=== PATIENT | female | born 1980 | race Caucasian/White ===

== ENCOUNTER → 2017-12-05 | Outpatient (CLI) | payer BC ==
--- NOTE | 2017-12-05 11:14 | DIAGNOSTIC IMAGING REPORT ---
CT OF THE SINUSES WITHOUT CONTRAST FUSION PROTOCOL CLINICAL HISTORY: Acute maxillary sinusitis. COMPARISON STUDY: No previous studies for comparison. TECHNIQUE: Axial images of the sinuses were obtained without intravenous contrast according to the Fusion protocol. Coronal reformats were viewed. FINDINGS: Visualized portions of the intracranial contents are unremarkable on this unenhanced exam. The mastoid air cells are clear. There is no fluid within the middle ears. No bony destruction is present. Orbits are unremarkable. The major drainage pathways are patent. There is slight leftward deviation the nasal septum with spur formation. The sinuses are essentially clear. There is minimal sinus mucosal thickening. No mass is present within the nasal cavity or the sinuses. IMPRESSION: Essentially clear sinuses. Minimal sinus mucosal thickening. No evidence for acute sinusitis. Patent major drainage pathways. Electronically signed by: Nikolai Loza M.D. 12/05/2017 11:13 AM Dictated Date/Time: 12/05/2017 11:09 AM
== END | disposition home or self-care (01) ==
LOC: C.CTS 10:48
PROVIDERS: ATTEND Physician Assistant
DX: J01.00 Acute maxillary sinusitis, unspecified (principal)